=== PATIENT | male | born 1985 | race African-American/Black ===

== ENCOUNTER 2022-07-21 21:16 | Emergency (ER) | payer BC ==
[~2022-07-21] VITALS: Ht 180.3 cm; Wt 81.6 kg
--- NOTE | 2022-07-21 21:40 | NUR ---
Dr. RUSSELL at bedside. MSE in progress.
--- NOTE | 2022-07-21 21:50 | NUR ---
Patient discharged to home in stable condition. A/O x 4. NAD noted. Ambulatory with a steady gait. Written and verbal after care instructions given. Patient verbalizes understanding of instructions. Stressed follow up or return to ER for worsening s/s.
== END 2022-07-21 21:50 | disposition home or self-care (01) ==
LOC: ER 21:16
DX: Z02.89 Encounter for other administrative examinations (principal); Z20.822 Contact with and (suspected) exposure to COVID-19; J45.909 Unspecified asthma, uncomplicated
CPT/HCPCS: A4663